=== PATIENT | male | born 2000 | race African-American/Black ===

== ENCOUNTER 2021-08-16 13:00 | Emergency (ER) | payer BC ==
[~2021-08-16 13:00] MED LIST: BENADRYL25 MG PO; CALAMINE180 ML TP; EUCERIN CREME120 GM TP; HYDROCORTISONE 01 OZ TP; ORADENT 0.1% DEN5 G1 TOP; PREDNISONE 10 M10 M1 PO
== END 2021-08-16 14:54 | disposition left against medical advice (07) ==
LOC: ER 13:00
DX: R10.9 Unspecified abdominal pain (principal); Z53.21 Procedure and treatment not carried out due to patient leaving prior to being seen by health care provider